=== PATIENT | male | born 1965 | race Caucasian/White ===

== ENCOUNTER 2019-06-19 12:08 | Emergency (ER) | payer BC, SELFPAY ==
--- NOTE | 2019-06-19 12:11 | ED.GENADULT ---
HPI - General Adult General Chief complaint: Skin/Abscess/Foreign Body Stated complaint: RASH Time Seen by Provider: 06/19/19 12:28 Source: patient and RN notes reviewed Mode of arrival: ambulatory Limitations: no limitations History of Present Illness HPI narrative: 2 days ago this patient started breaking out with a red-based vesicular rash on the left side of the forehead and left parietal area of the scalp. It is mildly painful, but not severely so. He did have chickenpox when he was 4 years of age. He has never had shingles before but believes he has this now. He has not had any pain or watering of the eyes. He has not noticed this on any other body area. He has had no fever. He has had no blurred vision. He is otherwise felt well without any ear pain, no nasal drainage, no sore throat, no fever, no cough. He has had no nausea, no vomiting, no diarrhea. He has had no hematuria, no dysuria, no pyuria. He did have a packet of Medrol tablets that he had left over from having had poison oak last year and took 1 days worth of that medication and then came to the clinic. Related Data Home Medications Medication Instructions Recorded Confirmed aspirin 81 mg PO DAILY 03/27/19 06/19/19 cyclobenzaprine 10 mg PO HS PRN 03/27/19 06/19/19 losartan 25 mg PO DAILY 03/27/19 06/19/19 metoprolol tartrate 12.25 mg PO BID 03/27/19 06/19/19 nitroglycerin [Nitrostat] 0.4 mg SUBLINGUAL Q5-15M PRN 03/27/19 06/19/19 rosuvastatin [Crestor] 20 mg PO DAILY 03/27/19 06/19/19 ticagrelor [Brilinta] 90 mg PO Q12H 03/27/19 06/19/19 tramadol 50 mg PO Q6H PRN 03/27/19 06/19/19 Prednisone Dose Pack 06/19/19 Allergies Allergy/AdvReac Type Severity Reaction Status Date / Time poison bob extract Allergy Unknown Rash Verified 06/19/19 12:26 Review of Systems Review of Systems: Narrative: CONSTITUTIONAL: Denies fever, chills, or sweats. Noncontributory except as pertains to the past medical history and the history of present illness. EYES: Denies visual changes, redness, or discharge. ENT: Denies rhinorrhea, congestion, sore throat, or otalgia. CARDIOVASCULAR: Denies chest pain, palpitations, or edema. RESPIRATORY: Denies cough or dyspnea. GASTROINTESTINAL: Denies abdominal pain, nausea, vomiting, or diarrhea. GENITOURINARY: Denies dysuria or hematuria. SKIN: Denies rash or itching. MUSCULOSKELETAL: Denies back pain, joint pain, or myalgia. NEUROLOGIC: Denies headache, numbness, or weakness. PSYCHIATRIC: Denies anxiety or depression. [facility] Family History Family History (Updated 03/27/19 @ 08:35 by Trinity Vazquez RN) Father Diabetes mellitus Social History Social History Smoking status: Former smoker Tobacco type: cigarettes Smoking end date: 03/27/19 Comments At time of signature, I have reviewed and agree with nursing past medical, surgical, social, and family history.Please see nursing chart for further information. There is no relevant family history pertinent to the presenting complaint. Exam Narrative: Exam Narrative: GENERAL: Well-appearing, well-nourished, and in no acute distress. HEAD: Normocephalic, atraumatic. EYES: PERRLA and EOMI. the fundi are within normal limits bilaterally. Eyelid eversion with magnifying lens exam shows no evidence of any foreign bodies or lesions. The eyelids are normal. The right eye and eyelids are normal by comparison. He does wear glasses for vision correction. EARS: TM's clear bilaterally and the canals are clear. NOSE: Nares clear, no rhinorrhea or epistaxis. THROAT:Mucous membranes moist.Oropharynx normal without erythema or exudates. NECK: Supple. No adenopathy of the neck, supraclavicular, axillary, or inguinal areas. RESPIRATORY: No respiratory distress. Airway patent. Respirations non-labored. Clear to auscultation. HEART: Regular rate and rhythm. No murmur heard. Normal peripheral pulses. ABDOMEN: Soft, nontender, nondistended, normal active bowel sounds.No masses. No rebound or
[2019-06-19 12:18] VITALS: BP 124/76; PULSE 84; RESP 20; TEMP 36.4; O2SAT 99
== END 2019-06-19 12:55 | disposition home or self-care (01) ==
PROVIDERS: Emergency Provider Family Medicine
DX: B02.9 Zoster without complications (principal); Z87.891 Personal history of nicotine dependence; I25.10 Atherosclerotic heart disease of native coronary artery without angina pectoris; E78.00 Pure hypercholesterolemia, unspecified; I10 Essential (primary) hypertension; G47.30 Sleep apnea, unspecified
CPT/HCPCS: 99213; G0463

== ENCOUNTER 2019-08-18 08:00 | Outpatient (RCR) | payer BC, SELFPAY ==
[2019-07-21 10:58] VITALS: BMI 33.8
[2019-07-21 10:59] VITALS: BMI 33.8
[2019-08-18 08:03] VITALS: BMI 33.8; BMI 34.1
[2019-08-18 08:16] VITALS: BMI 33.8
[2019-08-18 09:06] VITALS: BMI 34.1
== END 2019-10-19 23:59 | disposition home or self-care (01) ==
LOC: ANHDMC 08:00
DX: E66.9 Obesity, unspecified (principal); E78.5 Hyperlipidemia, unspecified; I25.10 Atherosclerotic heart disease of native coronary artery without angina pectoris; I25.2 Old myocardial infarction; Z71.3 Dietary counseling and surveillance
CPT/HCPCS: 97802; 97803

== ENCOUNTER 2019-12-22 09:30 | Outpatient (RCR) | payer BC, SELFPAY ==
[2019-10-22 10:57] VITALS: BMI 34.9
[2019-10-22 10:58] VITALS: BMI 34.9
[2019-12-22 09:15] VITALS: BMI 34.3
[2019-12-22 09:18] VITALS: BMI 34.3
== END 2020-01-20 23:59 | disposition home or self-care (01) ==
LOC: ANHDMC 09:30
DX: E66.9 Obesity, unspecified (principal); I25.10 Atherosclerotic heart disease of native coronary artery without angina pectoris; I25.2 Old myocardial infarction; E78.5 Hyperlipidemia, unspecified; Z71.3 Dietary counseling and surveillance
CPT/HCPCS: 97803

== ENCOUNTER 2020-05-24 14:00 | Outpatient (RCR) | payer BC, SELFPAY ==
[2020-03-03 10:27] VITALS: BMI 34.5
[2020-03-03 10:33] VITALS: BMI 34.5
[2020-05-24 13:43] VITALS: BMI 34.9
[2020-05-24 13:52] VITALS: BMI 34.9
== END 2020-05-30 14:26 | disposition home or self-care (01) ==
LOC: ANHDMC 14:00
PROVIDERS: PCP Nurse Practitioner Family
DX: E66.9 Obesity, unspecified (principal); E78.5 Hyperlipidemia, unspecified; I25.10 Atherosclerotic heart disease of native coronary artery without angina pectoris; I25.2 Old myocardial infarction; Z71.3 Dietary counseling and surveillance
CPT/HCPCS: 97803

== ENCOUNTER 2021-01-09 08:25 | Outpatient (CLI) | payer BC, SELFPAY ==
[2021-01-09 09:23] LABS: Anion Gap 10 mmol/L (8-16); Blood Urea Nitrogen 25 mg/dL (9-20); Calcium 9.4 mg/dL (8.4-10.2); Carbon Dioxide 23 mmol/L (22-30); Chloride 101 mmol/L (98-107); Estimated Glomerular Filt Rate > 60; Glucose 132 mg/dL (65-110); Magnesium 2.2 mg/dL (1.6-2.3); Potassium 3.8 mmol/L (3.4-5.0); Sodium 134 mmol/L (137-145)
== END 2021-01-09 08:26 | disposition home or self-care (01) ==
PROVIDERS: Visit Provider Internal Medicine Cardiovascular Disease
DX: I51.89 Other ill-defined heart diseases (principal)
CPT/HCPCS: 36415; 80048; 83735

== ENCOUNTER → 2022-03-01 12:41 | Outpatient (CLI) | payer BC, SELFPAY ==
--- NOTE | ~2022-03-01 | MR_ITS ---
EXAMINATION: MR cervical spine wo con DATE: 03/01/2022 13:50 INDICATION: Cervical radiculopathy. TECHNIQUE: Magnetic resonance imaging (MRI) of the cervical spine was performed without intravenous c ontrast. Sequences included sagittal T2-weighted FSE, sagittal T2-weighted FS FSE, sagittal T1-weight ed FSE, axial MERGE, and axial T2-weighted FSE. COMPARISON: CT cervical spine 01/10/2012 FINDINGS: There is 12 degrees levoscoliosis of cervicothoracic spine. There is kyphosis of cervical s pine. There is 2 mm retrolisthesis of C5 on C6 and C6 on C7. Vertebral body heights are normal. There is moderately decreased disc height at C3-C4 and C5-C6 and mildly decreased disc height at C6-C7. Th e spinal cord signal intensity is normal. There are 2 subcutaneous cysts in the posterior thorax marleny uring up to 14 mm, likely sebaceous cysts. The following disc levels are specifically discussed: C2-C3: There is a central protrusion. There is no uncovertebral joint osteoarthritis. There is mild b ilateral facet joint osteoarthritis. There is no neural foraminal stenosis. There is mild central can al stenosis. C3-C4: The disc is bulging. There is severe right and moderate left uncovertebral joint osteoarthriti s. There is severe right and mild left facet joint osteoarthritis. There is moderate bilateral neural foraminal stenosis. There is mild central canal stenosis. C4-C5: The disc is bulging with superimposed left central extrusion. There is mild right and moderate left uncovertebral joint osteoarthritis. There is moderate right and mild left facet joint osteoarth ritis. There is mild left neural foraminal stenosis. There is mild central canal stenosis. C5-C6: The disc is bulging with superimposed left central extrusion. There is severe bilateral uncove rtebral joint osteoarthritis. There is moderate facet joint osteoarthritis. There is moderate bilater al neural foraminal stenosis. There is mild central canal stenosis. C6-C7: The disc is bulging with superimposed central extrusion. There is severe bilateral uncovertebr al joint osteoarthritis. There is moderate bilateral facet joint osteoarthritis. There is moderate ri ght and mild left neural foraminal stenosis. There is mild central canal stenosis. C7-T1: The disc does not extend beyond the endplate margin. There is no uncovertebral joint osteoarth ritis. There is mild bilateral facet joint osteoarthritis. There is no neural foraminal stenosis. The re is no central canal stenosis. IMPRESSION: 1. Moderate cervical spondylosis. Reviewed, dictated and finalized at location A.
== END ==
PROVIDERS: PCP Physician Assistant
DX: M54.12 Radiculopathy, cervical region (principal); M43.02 Spondylolysis, cervical region
CPT/HCPCS: 72141

== ENCOUNTER → 2022-04-09 13:14 | Outpatient (CLI) | payer BC, SELFPAY ==
--- NOTE | ~2022-04-09 | MR_ITS ---
EXAMINATION: MR lumbar spine wo con DATE: 04/09/2022 13:40 INDICATION: Lumbar radiculopathy. TECHNIQUE: Magnetic resonance imaging (MRI) of the lumbar spine was performed without intravenous con trast. Sequences included sagittal T2-weighted FSE, sagittal T2-weighted FS FSE, sagittal T1-weighted FSE, and axial T2-weighted FSE. COMPARISON: None FINDINGS: Bone alignment is normal. There is mild chronic anterior wedging of T9-T12 vertebral bodies . Intervertebral disc heights are normal in the lumbar spine. The distal spinal cord signal intensity is normal. The conus medullaris is at T12-L1. The following disc levels are specifically discussed: L1-L2: The disc does not extend beyond the endplate margin. There is mild bilateral facet joint osteo arthritis. There is no neural foraminal stenosis. There is no central canal stenosis. L2-L3: The disc does not extend beyond the endplate margin. There is mild bilateral facet joint osteo arthritis. There is no neural foraminal stenosis. There is no central canal stenosis. L3-L4: The disc is bulging. There is mild right facet joint osteoarthritis. There is mild bilateral n eural foraminal stenosis. There is no central canal stenosis. L4-L5: There is a right foraminal protrusion. There is no facet joint osteoarthritis. There is mild r ight neural foraminal stenosis. There is no central canal stenosis. L5-S1: The disc does not extend beyond the endplate margin. There is mild bilateral facet joint osteo arthritis. There is no neural foraminal stenosis. There is no central canal stenosis. IMPRESSION: 1. Mild lumbar spondylosis. Reviewed, dictated and finalized at location A. BODY REPAIRER FIBERGLASS IMPRESSION: 1. Mild lumbar spondylosis.
== END ==
DX: M47.26 Other spondylosis with radiculopathy, lumbar region (principal)
CPT/HCPCS: 72148

== ENCOUNTER → 2023-01-23 07:39 | Outpatient (CLI) | payer BC, SELFPAY ==
--- NOTE | ~2023-01-23 | US_ITS ---
EXAMINATION: US soft tissue abdomen DATE: 01/23/2023 08:12 INDICATION: Umbilical hernia without obstruction or gangrene. TECHNIQUE: Multiple grayscale and Doppler ultrasound images of the abdomen were obtained. COMPARISON: None FINDINGS: There is an umbilical hernia containing fat and a small volume of loculated fluid. The dejan ia sac measures 4.6 x 2.1 x 3.7 cm. The fascial defect measures 2.1 x 1.8 cm. IMPRESSION: 1. Umbilical hernia containing fat and a small volume of loculated fluid. Reviewed, dictated and finalized at location A.
== END ==
DX: K42.9 Umbilical hernia without obstruction or gangrene (principal)
CPT/HCPCS: 76705

== ENCOUNTER 2023-02-06 09:30 | Emergency (ER) | payer BC, SELFPAY ==
[2023-02-06] VITALS (12 sets, daily range): BP systolic 122–150; BP diastolic 79–86; PULSE 71–86; RESP 12–22; TEMP 36.4; O2SAT 93–98
--- NOTE | ~2023-02-06 | XR_ITS ---
EXAMINATION: XR chest 2V 02/06/2023 10:41 INDICATION: Weakness and dizziness PROCEDURE: 2 view chest COMPARISON: 12/08/2018 FINDINGS: The lungs are clear. The cardiomediastinal silhouette is within normal limits. There are no pleural effusions. There is no pneumothorax suspected. IMPRESSION: 1: NO ACUTE CARDIOPULMONARY DISEASE. Reviewed, dictated and finalized at location B.
--- NOTE | 2023-02-06 09:36 | ECG_ITS ---
Measurements Intervals [place] Rate: 84 P: 48 MS: 173 QRS: 24 QRSD: 96 T: 35 QT: 373 QTc: 443 Interpretive Statements SINUS RHYTHM WITH SINUS ARRHYTHMIA CONSIDER ANTERIOR INFARCT, AGE INDETERMINATE INFERIOR INFARCT, AGE INDETERMINATE BASELINE ARTIFACT- I, II, AVR, AVL, V1 ABNORMAL ECG COMPARED TO ECG 12/19/2018 09:10:50 SINUS ARRHYTHMIA NOW PRESENT Electronically Signed On 02-06-2023 11:11:58 CDT by Shamir Cheek D.O.
[2023-02-06 09:50] LABS: Basophils Percent Auto 0.4 % (0.2-1.2); Eosinophils Absolute Auto 0.2 K/mm3 (0-0.3); Eosinophils Percent Auto 1.9 % (0-4.4); Hemoglobin 14.9 g/dL (14.0-18.0); Immature Granulocyte Absolute 0.05 K/mm3 (0.00-0.031); Immature Granulocyte Percent A 0.5 % (0-0.5); Lymphocytes Absolute Auto 1.96 K/mm3 (0.9-3.2); Lymphocytes Percent Auto 18.1 % (18.3-44.2); Mean Corpuscular HGB Conc 32.4 g/dl (32-36); Mean Corpuscular Hemoglobin 32.1 pg (26-34); Mean Corpuscular Volume 99.1 fl (80-100); Monocytes Absolute Auto 0.8 K/mm3 (0.1-0.6); Monocytes Percent Auto 7.8 % (2.6-8.5); Neutrophils Absolute Auto 7.7 K/mm3 (1.3-6.7); Neutrophils Percent Auto 71.3 % (45.5-73.1); Platelet Count Result 238 k/mm3 (150-375); Red Blood Count 4.64 M/mm3 (4.6-6.20); Red Cell Distribution Width 12.8 % (11.5-14.5); White Blood Count 10.8 K/mm3 (4.5-10.0)
[2023-02-06] MEDS: SODIUM CHLORIDE 0.9% IV 1,000 ML 999 ML IV CONT (09:51)
[2023-02-06 10:03] LABS: Alanine Aminotransferase 58 U/L (6-50); Albumin Level 4.3 g/dL (3.5-5.1); Alkaline Phosphatase 134 U/L (38-126); Anion Gap 9 mmol/L (8-16); Aspartate Amino Transferase 39 U/L (17-59); Bilirubin,Total 0.7 mg/dL (0.2-1.3); Blood Urea Nitrogen 18 mg/dL (9-20); Calcium 8.6 mg/dL (8.4-10.2); Carbon Dioxide 26 mmol/L (22-30); Chloride 101 mmol/L (98-107); Estimated CRCL calculation 108 ml/min; Estimated Glomerular Filt Rate > 60; Glucose 117 mg/dL (65-110); Potassium 3.9 mmol/L (3.4-5.0); Sodium 136 mmol/L (137-145)
--- NOTE | 2023-02-06 10:12 | ED.GENADULT ---
HPI - General Adult General Chief complaint: Arrhythmia/Palpitations Stated complaint: HR 40 to 80, nauseated, dizzy, watch says AFIB Time Seen by Provider: 02/06/23 09:37 History of Present Illness HPI narrative: 57-year-old male history of hypertension, dyslipidemia and status post x5 stent placements presents to the emergency room for not feeling well . Patient states yesterday he was seen at the [facility] clinic for cellulitis on his back. Patient was told that his heart rate was jumping between 40 and 80 bpm. 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 Patient states EKG yesterday was normal. Patient was able to place himself on a master scheduler yesterday at home, was told that his heart rate was A-fib. Patient denies any chest pain palpitation shortness of breath. Patient does admit to occasional dizziness that is associated with nausea that is worse when standing up and moving around. Related Data Home Medications Medication Instructions Recorded Confirmed aspirin 81 mg chewable tablet 81 mg PO DAILY 03/27/19 06/19/19 cyclobenzaprine 10 mg tablet 10 mg PO HS PRN Pain 03/27/19 06/19/19 losartan 25 mg tablet 25 mg PO DAILY 03/27/19 06/19/19 metoprolol tartrate 25 mg tablet 12.25 mg PO BID 03/27/19 06/19/19 nitroglycerin 0.4 mg sublingual 0.4 mg sublingual Q5-15M PRN Chest 03/27/19 06/19/19 tablet (Nitrostat) Pain rosuvastatin 20 mg tablet (Crestor) 20 mg PO DAILY 03/27/19 06/19/19 ticagrelor 90 mg tablet (Brilinta) 90 mg PO Q12H 03/27/19 06/19/19 tramadol 50 mg tablet 50 mg PO Q6H PRN Pain 03/27/19 06/19/19 Prednisone Dose Pack 06/19/19 Allergies Allergy/AdvReac Type Severity Reaction Status Date / Time No Known Allergies Allergy Verified 02/06/23 09:51 Review of Systems Review of Systems: CONSTITUTIONAL: Denies fever, chills, or sweats. EYES: Denies visual changes, redness, or discharge. ENT: Denies rhinorrhea, congestion, sore throat, or otalgia. CARDIOVASCULAR: Denies chest pain, palpitations, or edema. RESPIRATORY: Denies cough or dyspnea. GASTROINTESTINAL: Denies abdominal pain, nausea, vomiting, or diarrhea. GENITOURINARY: Denies dysuria or hematuria. SKIN: Denies rash or itching. MUSCULOSKELETAL: Denies back pain, joint pain, or myalgia. NEUROLOGIC: Per HPI PSYCHIATRIC: Denies anxiety or depression. [facility] Family History Family History Father Diabetes mellitus Social History Social History Smoking status: Former smoker Tobacco type: cigarettes Smoking end date: 03/27/19 Spiritual care concerns: No Exam Narrative: GENERAL: Well-appearing, well-nourished, no physical limitations, and in no acute distress. HEAD: Normocephalic, atraumatic. EYES: Conjunctivae normal, PERRLA and EOMI. CHEST: Clear to auscultation. No respiratory distress. No wheezes rales or rhonchi. HEART: Regular rate and rhythm. No murmur heard. Normal peripheral pulses. EXTREMITIES: Normal range of motion. No edema. No clubbing or cyanosis SKIN: posterior thorax: 4cm circular area of erythema, warmth, and TTP NEURO: No focal deficits. Alert and oriented x3. MAEW. CN's II-XI intact bilaterally, normal gait PSYCH: Cooperative. Normal mood and affect. Course Vital Signs Vital signs: Vital Signs Temperature 36.4 C 02/06/23 09:36 Pulse Rate 84 02/06/23 09:36 Respiratory Rate 16 02/06/23 09:36 Pulse Oximetry 98 02/06/23 09:36 Oxygen Delivery Room Air 02/06/23 09:36 Temperature 36.4 C 02/06/23 09:36 Pulse Rate 84 02/06/23 09:36 Respiratory Rate 16 02/06/23 09:36 Blood Pressure 150/86 H 02/06/23 09:44 Pulse Oximetry 98 02/06/23 09:36 Oxygen Delivery Room Air 02/06/23 09:36 Medical Decision Making MDM Narrative Medical decision making narrative: 57-year-old male history of hypertension, dyslipidemia, status post praveen
[2023-02-06 10:15] LABS: Lactic Acid Reflex 0.8 mmol/L (0.7-2.0)
[2023-02-06 10:15] LABS: Troponin I < 0.012 ng/mL (0.000-0.034)
== END 2023-02-06 11:48 | disposition home or self-care (01) ==
PROVIDERS: Emergency Medicine; Emergency Provider Nurse Practitioner Family
DX: R42 Dizziness and giddiness (principal); L03.312 Cellulitis of back [any part except buttock and flank]; I10 Essential (primary) hypertension; E78.5 Hyperlipidemia, unspecified; Z95.5 Presence of coronary angioplasty implant and graft; Z87.891 Personal history of nicotine dependence; Z79.82 Long term (current) use of aspirin; R94.31 Abnormal electrocardiogram [ECG] [EKG]
CPT/HCPCS: 36415; 71046; 80053; 83605; 84484; 85025; 93005; 96360; 99284; J7030

== ENCOUNTER → 2023-03-28 14:05 | Outpatient (CLI) | payer BC, SELFPAY ==
--- NOTE | ~2023-03-28 | CT_ITS ---
EXAMINATION: CT brain & sinus wo con DATE: 03/28/2023 14:24 INDICATION: Vertigo. Chronic sinusitis. TECHNIQUE: Computed tomography (CT) of the head was performed without intravenous contrast. The mA wa s adjusted according to patient size. Iterative reconstruction technique was employed. Exam dose: 67 4.51 mGy-cm total exam DLP. COMPARISON: 01/10/2012 MR brain 01/10/2012 CT brain FINDINGS: Chronic lacunar infarct involving left basal ganglia and anterior limb of left internal cap lissa. This has increased mildly in size since 01/10/2012. No cerebrovascular accident is noted elsewhere. No intracranial mass lesion or hemorrhage, midline shift or mass effect is detected. Bilateral carotid siphon internal carotid artery calcifications. Normal ventricular size. No subdural or epidural hematoma. No orbital mass lesion. No fracture or bone destruction of the cranial vault. Bilateral nasal antral windows and partial ethmoidectomies. There is patchy soft tissue thickening of the remaining ethmoids and soft tissue thickening of the right frontoethmoid area. The frontal sinus es, maxillary and sphenoid sinuses are otherwise unremarkable. Normal development and aeration of the mastoid air cells bilaterally. IMPRESSION: Chronic lacunar infarct of left basal ganglia and anterior limb left internal capsule No acute intracranial finding Cerebral atherosclerosis Reviewed, dictated and finalized at Location A. Reviewed, dictated and finalized at location L. HEATER INSTALLER IMPRESSION: Chronic lacunar infarct of left basal ganglia and anterior limb le ft internal capsule No acute intracranial finding Cerebral atherosclerosis
== END ==
PROVIDERS: PCP Otolaryngology
DX: I67.2 Cerebral atherosclerosis (principal); R42 Dizziness and giddiness; Z86.73 Personal history of transient ischemic attack (TIA), and cerebral infarction without residual deficits
CPT/HCPCS: 70450; 70486

== ENCOUNTER 2023-06-05 10:58 | Outpatient (CLI) | payer BC, SELFPAY ==
--- NOTE | ~2023-06-05 | MR_ITS ---
MRI of the brain Clinical History: Benign paroxysmal vertigo Technique: Axial and sagittal T1-weighted images were acquired. These were followed by axial T2-weigh jose angel, diffusion weighted, gradient, and FLAIR images. Thin cut coronal T1-weighted and T2-weighted davin ges, and thin cut axial T1-weighted images were performed through the internal auditory canals. COMPARISON: 01/10/2012 Findings: There is no acute infarct, intracranial hemorrhage, or mass lesion. Stable chronic lacunar infarct in the left basal ganglia/left periventricular white matter. There are mild chronic microvasc ular ischemic changes. Ventricles and subarachnoid spaces are unremarkable. Orbits are unremarkable. Paranasal sinuses and m astoid air cells are clear. Major intracranial flow voids are intact. Sagittal midline structures are intact. No mass lesion identified at the CP angle regions or internal auditory canals. IMPRESSION: No acute infarct, intracranial hemorrhage, or mass lesion. Stable chronic lacunar infarct in the left basal ganglia, as above. Mild chronic microvascular ischemic changes. Reviewed, dictated and finalized at location . SUPPLY
== END 2023-06-05 10:59 ==
LOC: MICIMG 10:59
DX: H81.10 Benign paroxysmal vertigo, unspecified ear (principal)
CPT/HCPCS: 70551

== ENCOUNTER 2024-03-02 12:05 | Emergency (ER) | payer BC, SELFPAY ==
--- NOTE | 2024-03-02 12:08 | ED.URI ---
HPI - URI/Sore Throat General Chief Complaint: Upper Respiratory Infection Stated Complaint: Congestion Time Seen by Provider: 03/02/24 12:08 Source: patient Mode of arrival: ambulatory Limitations: no limitations History of Present Illness HPI Narrative: Patient is a 58-year-old male who presents with 4 days of congestion and cough. Patient has been taking Benadryl and Mucinex DM. Patient states symptoms are improving slightly each day. Denies any fever, chills, nausea, vomiting, diarrhea. Denies any sore throat, ear pain. History of smoking for 30 years. Patient took COVID test at home but it was but negative Related Data Home Medications Medication Instructions Recorded Confirmed aspirin 81 mg chewable tablet 81 mg PO DAILY 03/27/19 06/19/19 losartan 25 mg tablet 25 mg PO DAILY 03/27/19 06/19/19 metoprolol tartrate 25 mg tablet 12.25 mg PO BID 03/27/19 06/19/19 nitroglycerin 0.4 mg sublingual 0.4 mg sublingual Q5-15M PRN Chest 03/27/19 06/19/19 tablet (Nitrostat) Pain rosuvastatin 20 mg tablet (Crestor) 20 mg PO DAILY 03/27/19 06/19/19 ticagrelor 90 mg tablet (Brilinta) 90 mg PO Q12H 03/27/19 06/19/19 tramadol 50 mg tablet 50 mg PO Q6H PRN Pain 03/27/19 06/19/19 Allergies Allergy/AdvReac Type Severity Reaction Status Date / Time No Known Allergies Allergy Verified 02/06/23 09:51 Review of Systems Review of Systems: All systems reviewed & are unremarkable except as noted in HPI and below Constitutional: Constitutional: Denies body ache(s), Denies chills, Denies fatigue, Denies fever(s), Denies headache(s), Denies malaise and Denies weakness Eyes: Eyes: Denies blurry vision, Denies itchy eyes and Denies loss of vision ENT: Denies otalgia, Denies headache(s), Reports nasal congestion, Denies sinus pain and Denies sore throat Cardiovascular: Cardiovascular: Denies chest pain, Denies irregular heart rhythm and Denies dyspnea Respiratory: Respiratory: Reports cough and Denies dyspnea Gastrointestinal: Gastrointestinal: Denies abdominal pain, Denies diarrhea, Denies nausea and Denies vomiting Musculoskeletal: Musculoskeletal: Denies back pain, Denies myalgias and Denies arthralgias Integumentary/Breasts: Skin/Breast: Denies pruritus and Denies rash Neurologic: Denies headache(s), Denies loss of vision and Denies weakness Psychiatric: Psychiatric: Reports no additional psychiatric complaints Endocrine: Endocrine: Denies fatigue Allergic/Immunologic: Allergic/Immunologic: Denies itchy eyes PMFSH Family History Family History Father Diabetes mellitus Social History Social History Smoking status: Former smoker Tobacco type: cigarettes Smoking end date: 03/27/19 Spiritual care concerns: No Comments At time of signature, agree with nursing past medical, surgical, social and family history. There is no relevant family history pertinent to the presenting complaint. Exam Const: General: cooperative, healthy appearing, comfortable, no acute distress and well nourished Nutritional Appearance: well nourished Orientation/consciousness: patient oriented x3 Limitations: no limitations HENMT: Head: normal to inspection, normocephalic and atraumatic Ears: hearing grossly normal bilaterally, external ears normal, TM's normal bilaterally, EAC's normal and no periauricular adenopathy Face/Nose/Sinus: Normal external nose present, Abnormal mucous membranes and turbinates present erythematous bilateral and diffuse, normal facial exam, sinuses nontender and face symmetric Face and sinus: normal facial exam, sinuses nontender and face symmetric Mouth: Yes Normal oral and palatal mucosa present, Yes lip normal, Yes tongue normal, Yes Normal salivary glands and ducts present, Yes oropharynx normal and Yes moist mucous membranes Teeth and gingiva: dentition normal Throat: posterior oropharynx nick
[2024-03-02 12:35] VITALS: BP 100/68; PULSE 87; RESP 16; TEMP 36.4; O2SAT 95
== END 2024-03-02 13:19 | disposition home or self-care (01) ==
PROVIDERS: Emergency Provider Nurse Practitioner Family; PCP Nurse Practitioner
DX: J06.9 Acute upper respiratory infection, unspecified (principal); Z87.891 Personal history of nicotine dependence; I25.10 Atherosclerotic heart disease of native coronary artery without angina pectoris; E78.00 Pure hypercholesterolemia, unspecified; I10 Essential (primary) hypertension; G47.30 Sleep apnea, unspecified; I25.2 Old myocardial infarction; Z79.82 Long term (current) use of aspirin
CPT/HCPCS: 99213; G0463